=== PATIENT | female | born 1955 ===

== ENCOUNTER → 2024-06-21 07:10 | Outpatient (REF) | payer MEDICARE, OTHER, SELFPAY ==
[2024-06-21] MEDS: LEXISCAN 0.4 MG IV (09:12)
== END ==
LOC: RCS 07:10
PROVIDERS: ATTENDING PHYSICIAN Internal Medicine; FAMILY PHYSICIAN Family Medicine
DX: R07.89 Other chest pain (principal)
CPT/HCPCS: 78452; 93017; A9500; J2785

== ENCOUNTER → 2024-06-22 10:11 | Outpatient (REF) | payer MEDICARE, OTHER, SELFPAY | LOC: HWRCS 10:11 | PROVIDERS: ATTENDING PHYSICIAN Internal Medicine; FAMILY PHYSICIAN Family Medicine | DX: I10 Essential (primary) hypertension (principal) | CPT/HCPCS: 93306 ==